=== PATIENT | female | born 1940 | race Caucasian/White ===

== ENCOUNTER 2017-10-18 06:33 | Inpatient (IN) | payer OTHER ==
[2017-10-18] VITALS (9 sets, daily range): BP systolic 101–139; BP diastolic 35–91
[~2017-10-18] VITALS: Ht 149.9 cm; Wt 54.4 kg
--- NOTE | ~2017-10-18 | EKG ---
[address] [address] ELECTROCARDIOGRAM REPORT Name: TIFFANI VUONG Room #: 150-10 [facility].#: [id number] Admission: 10/18/17 Attend Phys: Ronaldo Read MD Discharge: Date of : 36 Report #: [id number] THIS REPORT FOR: //name// [facility] Test Date: 2017-10-18 Test Time: 11:45:09 Pat Name: TIFFANI VUONG Department: Room: 150 10 Gender: F Solar Sales Ambassador: ALFONSO : 1940 Requested By: Ronaldo Read Order Number: [id number] MD: Adam Junior Measurements Intervals [place] Rate: 62 P: 26 IL: 280 QRS: -42 QRSD: 141 T: 96 QT: 468 QTc: 476 Interpretive Statements Sinus rhythm Prolonged IL interval Left bundle branch block Compared to ECG 05/01/2014 11:18:32 No significant changes Electronically Signed On 10-18-2017 13:09:30 CDT by Adam Junior [email or web address] <ELECTRONICALLY SIGNED> By: Adam Junior MD 10/18/17 1309 1145 1145 Adam Junior MD /[facility]
--- NOTE | ~2017-10-18 | O ---
[facility] [place] [address] OPERATIVE REPORT Name: TIFFANI VUONG Room #: 150-10 [facility] M.R.#: [id number] Admission: 10/18/17 Attend Phys: Ronaldo Read MD Discharge: Date of : 36 Report #: [id number] THIS REPORT FOR: //name// CC: Sachin Read DATE OF SERVICE: 10/18/2017 PREOPERATIVE DIAGNOSIS: Right ankle trimalleolar fracture. POSTOPERATIVE DIAGNOSIS: Right ankle trimalleolar fracture. PROCEDURE: Right ankle trimalleolar fracture open reduction and internal fixation. SURGEON: Ronaldo Read MD SHOW CARD WRITER: Gin Spears. ANESTHESIA: General. ESTIMATED BLOOD LOSS: Minimal. DRAINS: None. TOURNIQUET TIME: 90 minutes. DESCRIPTION OF PROCEDURE: The patient brought to the operating room where she was placed under general anesthesia. Once under adequate general anesthesia, her right lower extremity was prepped and draped in sterile manner. The extremity was elevated, exsanguinated and a tourniquet placed to 300 mmHg. A lateral incision over the fibula was made. This was dissected down through soft tissue to the fracture site. The fracture was freed of any intervening soft tissue, it was disimpacted as well. Once disimpacted, the fracture was reduced and fixed with a 10-hole 1/3 tubular plate. An incision over the medial malleolus was made. This was dissected down through the soft tissue to this fracture site as well. Any hematoma and soft tissue intervening was removed from the fracture site and fixation achieved with two 4.0 cannulated screws placed under fluoroscopic guidance. The joint was unstable due to a third posterior malleolar fracture fragment, so this was then therefore identified and a [place] elevator was used to free up this fracture site as well and any intervening soft tissue was removed. Exposure was made of the entire posterior malleolus through the medial incision. Once exposed, a reduction tenaculum was placed across the joint to hold it in a reduced position. Excellent reduction was achieved. The wound was irrigated copiously and two 4.0 cannulated screws were then placed across the fracture site from anterior to posterior. [facility] [address] [place] [address] OPERATIVE REPORT Name: TIFFANI VUONG Room #: 150-10 [facility] M.R.#: [id number] Admission: 10/18/17 Attend Phys: Ronaldo Read MD Discharge: Date of : 36 Report #: [id number] fixation and alignment was achieved in this manner as verified under fluoroscopy. The wounds were irrigated copiously and closed with 2-0 Vicryl in subcutaneous tissues and kathi were used for the skin. The wounds were dressed with Xeroform, 4 x 4s, and sterile soft compressive dressing with a short leg cast was placed. Tourniquet was let down at approximately 90 minutes. Toes were pink and warm with good capillary refill. There were no complications from the procedure. The patient tolerated the procedure well and went to the recovery room without incident. By: 1421 1440 Ronaldo Read MD /nt
[~2017-10-18 06:33] MED LIST: ADVAIR 250-501 EACH INH; ALENDRONATE SOD70 MG PO; ALEVE220 MG PO; AMLODIPINE BESY10 MG PO; APAP500 PO; ASPIR 8181 MG PO; BYSTOLIC 5 MG5 M1 PO; BYSTOLIC20 MG PO; CALICUM 500+D1 EACH PO; COLACE100 MG PO; COUMADIN 2 MG TA2 M1 PO; DARVOCET-N 1001 EACH PO; ENABLEX15 MG PO; FISH OIL 1,001000 M2 PO; FLONASE 0.05%50 MCG NASAL; HYDROCHLOROTHIA25 M2 PO; LISINOPRIL20 MG PO; MAG-AL PLUS SUS30 ML PO; NASACORT10.8 ML NASAL; NEURONTIN 300300 M1 PO; NORCO 10-325 T1 EACH PO; OXYBUTYNIN 5 MG5 M2 PO; PRILOSEC 20 MG20 MG PO; PRILOSEC20 MG PO; PROAIR HFA8.5 GM INH; ROBITUSSIN100 MG/53 PO; SIMVASTATIN40 MG PO; TRAMADOL 50 MG50 MG PO; TUMS PO; UNICOMPLEX M TA1 TA1 PO; VITAMIN D1000 UNI1 PO; VITAMIN D2000 UNIT PO; ZOLPIDEM TARTRA10 MG PO; ZYRTEC10 MG PO
[2017-10-19 05:15] VITALS: BP 100/48; BP 138/69
[2017-10-19 06:31] LABS: HEMATOCRIT 35.7 % (37.0-47.0); HEMOGLOBIN 12.2 gm/dL (12.0-15.0)
[2017-10-19 06:39] LABS: POTASSIUM 3.4 mmol/L (3.5-5.1)
[2017-10-19 07:13] VITALS: BP 153/75
[2017-10-19 14:16] VITALS: BP 152/76
[2017-10-19 19:20] VITALS: BP 105/56
[2017-10-20 04:10] VITALS: BP 142/55
[2017-10-20 08:00] VITALS: BP 144/59
[2017-10-20 16:00] VITALS: BP 133/59
[2017-10-20 19:15] VITALS: BP 119/58
[2017-10-21 05:04] VITALS: BP 134/53
[2017-10-21 08:00] VITALS: BP 138/61
[2017-10-22 08:42] VITALS: BP 135/72
[2017-10-22] MEDS ORDERED: ASA5UEC PO (09:13)
[2017-10-23 01:05] VITALS: BP 123/70
[2017-10-23 08:04] VITALS: BP 146/72
== END 2017-10-23 19:00 | DRG 494 ==
LOC: TBA 06:33 → OR 06:33 → 4E 06:33 → TBA 06:34 → OR 08:03 → 4E 15:32 → OR 15:33 → SICU 10-21 14:01
PROVIDERS: Orthopaedic Surgery Foot and Ankle Surgery
PROC: 0QSG04Z Reposition Right Tibia with Internal Fixation Device, Open Approach (ICD-10-PCS; principal; 2017-10-18)
PROC: 0QSJ04Z Reposition Right Fibula with Internal Fixation Device, Open Approach (ICD-10-PCS; principal; 2017-10-18)
DX: S82.851A Displaced trimalleolar fracture of right lower leg, initial encounter for closed fracture (principal); I10 Essential (primary) hypertension; Z96.653 Presence of artificial knee joint, bilateral; E78.5 Hyperlipidemia, unspecified; J45.909 Unspecified asthma, uncomplicated; M81.0 Age-related osteoporosis without current pathological fracture; G89.29 Other chronic pain; M54.5 Low back pain; M19.90 Unspecified osteoarthritis, unspecified site; M54.16 Radiculopathy, lumbar region; R26.9 Unspecified abnormalities of gait and mobility; R29.6 Repeated falls; N39.3 Stress incontinence (female) (male); G47.00 Insomnia, unspecified; Z79.899 Other long term (current) drug therapy; Z79.82 Long term (current) use of aspirin; W18.39XA Other fall on same level, initial encounter; Y93.89 Activity, other specified; Y92.098 Other place in other non-institutional residence as the place of occurrence of the external cause; Y99.8 Other external cause status
CPT/HCPCS: 10783; 15002; 50010; 50101; 50386; 51122; 51131; 51272; 51412; 51495; 56524; 56525; 56667; 57091; 62110; 62900; 65060; 70005

== ENCOUNTER → 2017-11-14 | Outpatient (CLI) | payer OTHER ==
[~2017-11-14] MED LIST changes: +ASA5UEC PO
== END ==
LOC: HYPER 11-08 14:32
DX: T81.4XXD Infection following a procedure, subsequent encounter (principal); M16.11 Unilateral primary osteoarthritis, right hip; M41.9 Scoliosis, unspecified; M43.09 Spondylolysis, multiple sites in spine; M25.571 Pain in right ankle and joints of right foot; M19.90 Unspecified osteoarthritis, unspecified site; Y83.8 Other surgical procedures as the cause of abnormal reaction of the patient, or of later complication, without mention of misadventure at the time of the procedure

== ENCOUNTER → 2017-11-20 | Outpatient (CLI) | payer OTHER | LOC: HYPER 06:34 | DX: T81.4XXD Infection following a procedure, subsequent encounter (principal); M16.11 Unilateral primary osteoarthritis, right hip; M41.9 Scoliosis, unspecified; M43.09 Spondylolysis, multiple sites in spine; M25.571 Pain in right ankle and joints of right foot; F41.9 Anxiety disorder, unspecified; Y83.8 Other surgical procedures as the cause of abnormal reaction of the patient, or of later complication, without mention of misadventure at the time of the procedure ==

== ENCOUNTER → 2017-12-06 | Outpatient (CLI) | payer OTHER | LOC: HYPER 09:25 | DX: T81.4XXD Infection following a procedure, subsequent encounter (principal); M16.11 Unilateral primary osteoarthritis, right hip; M41.9 Scoliosis, unspecified; M43.09 Spondylolysis, multiple sites in spine; M25.571 Pain in right ankle and joints of right foot; M19.90 Unspecified osteoarthritis, unspecified site; F41.9 Anxiety disorder, unspecified; Y83.8 Other surgical procedures as the cause of abnormal reaction of the patient, or of later complication, without mention of misadventure at the time of the procedure ==

== ENCOUNTER → 2018-01-03 | Outpatient (CLI) | payer OTHER | LOC: HYPER 07:02 | DX: T81.4XXD Infection following a procedure, subsequent encounter (principal); M16.11 Unilateral primary osteoarthritis, right hip; M41.9 Scoliosis, unspecified; M43.09 Spondylolysis, multiple sites in spine; M25.571 Pain in right ankle and joints of right foot; F41.9 Anxiety disorder, unspecified; Y83.8 Other surgical procedures as the cause of abnormal reaction of the patient, or of later complication, without mention of misadventure at the time of the procedure ==

== ENCOUNTER → 2019-01-15 | Outpatient (CLI) | payer OTHER ==
[~2019-01-15] MED LIST changes: +ACETAMINOPHEN-1 EAC3 PO; +ASA81BEC PO; +FIRVANQ50 MG/1 ML PO; +HYDROCHLOROTHIA25 M1 PO; +MELATIN3 MG PO; +NAPROXEN SODIU220 M2 PO; +ROBITUSSIN15 MG/5 ML PO; +SUPER THERAVIT1 EACH PO; +TIZANIDINE HCL2 M1 PO; +TRAZODONE 150150 M1 PO; +VITAMIN C500 M2 PO; +ZYRTEC10 M5 PO
== END ==
LOC: HYPER 12:13
DX: S61.552A Open bite of left wrist, initial encounter (principal); M16.11 Unilateral primary osteoarthritis, right hip; M41.9 Scoliosis, unspecified; M43.09 Spondylolysis, multiple sites in spine; M19.90 Unspecified osteoarthritis, unspecified site; M25.571 Pain in right ankle and joints of right foot; R60.0 Localized edema; R26.9 Unspecified abnormalities of gait and mobility; F41.9 Anxiety disorder, unspecified; W55.01XA Bitten by cat, initial encounter; Y93.9 Activity, unspecified; Y92.89 Other specified places as the place of occurrence of the external cause; Y99.9 Unspecified external cause status

== ENCOUNTER 2019-03-17 01:01 | Inpatient (IN) | payer OTHER ==
[~2019-03-17] VITALS: Ht 149.9 cm; Wt 64.4 kg
[~2019-03-17 01:01] MED LIST changes: -ACETAMINOPHEN-1 EAC3 PO; -ASA81BEC PO; -FIRVANQ50 MG/1 ML PO; -HYDROCHLOROTHIA25 M1 PO; -MELATIN3 MG PO; -NAPROXEN SODIU220 M2 PO; -ROBITUSSIN15 MG/5 ML PO; -SUPER THERAVIT1 EACH PO; -TIZANIDINE HCL2 M1 PO; -TRAZODONE 150150 M1 PO; -VITAMIN C500 M2 PO; -ZYRTEC10 M5 PO
[2019-03-17 01:03] VITALS: BP 88/39
[2019-03-17] MEDS ORDERED: NAPROXEN SODIU220 M2 PO (01:04)
[2019-03-17] MEDS ORDERED: HYDROCHLOROTHIA25 M1 PO (01:05)
[2019-03-17] MEDS ORDERED: SUPER THERAVIT1 EACH PO (01:11)
[2019-03-17] MEDS ORDERED: VITAMIN C500 M2 PO (01:11)
[2019-03-17] MEDS ORDERED: ACETAMINOPHEN-1 EAC3 PO (01:13)
[2019-03-17] MEDS ORDERED: ASA81BEC PO (01:14)
[2019-03-17] MEDS ORDERED: ROBITUSSIN15 MG/5 ML PO (01:14)
[2019-03-17] MEDS ORDERED: ZYRTEC10 M5 PO (01:15)
[2019-03-17] MEDS ORDERED: NASACORT10.8 ML NASAL (01:15)
[2019-03-17] MEDS ORDERED: MELATIN3 MG PO (01:16)
[2019-03-17] MEDS ORDERED: TRAZODONE 150150 M1 PO (01:17)
[2019-03-17] MEDS ORDERED: TIZANIDINE HCL2 M1 PO (01:18)
[2019-03-17 01:39] LABS: HEMATOCRIT 31.1 % (37.0-47.0); HEMOGLOBIN 10.3 gm/dL (12.0-15.0); MCH 31.3 pg (26.0-34.0); MCHC 33.1 g/dL (28.0-37.0); MCV 94.4 fL (80.0-100.0); PLATELET COUNT 306 thou/uL (150-400); RDW 13.8 % (10.5-14.5); WBC 8.3 thou/uL (4.0-11.0)
[2019-03-17 01:42] LABS: ANION GAP 8 mmol/L (7-16); BUN 14 mg/dL (7-18); CALCIUM 8.3 mg/dL (8.5-10.1); CHLORIDE 101 mmol/L (98-107); CO2 26 mmol/L (21-32); CREATININE 0.8 mg/dL (0.6-1.0); GLUCOSE 105 mg/dL (74-106); POTASSIUM 3.6 mmol/L (3.5-5.1); SODIUM 135 mmol/L (136-145)
[2019-03-17 01:43] LABS: URINE BILIRUBIN NEGATIVE (Negative); URINE BLOOD NEGATIVE (Negative); URINE CLARITY CLEAR; URINE COLOR YELLOW; URINE GLUCOSE-RANDOM* NEGATIVE (Negative); URINE KETONES NEGATIVE (Negative); URINE LEUKOCYTES-REFLEX TRACE (Negative); URINE NITRITE-REFLEX NEGATIVE (Negative); URINE PROTEIN (DIPSTICK) NEGATIVE (Negative); URINE UROBILINOGEN 0.2 E.U./dl (0.2-1.0)
[2019-03-17 01:52] LABS: ALBUMIN 2.9 g/dL (3.4-5.0); MAGNESIUM 1.7 mg/dL (1.8-2.4); SGOT 9 U/L (15-37); SGPT 12 U/L (30-65); TOTAL BILIRUBIN 0.4 mg/dL (<0.1-1.0); TOTAL PROTEIN 5.4 g/dL (6.4-8.2); TROPONIN-I <0.06 ng/mL (<0.06)
[2019-03-17 02:16] LABS: ABSOLUTE NEUTROPHILS 5.6 thou/uL (1.4-8.2)
[2019-03-17 02:17] LABS: LARGE PLATELETS OCCASIONAL
[2019-03-17 06:06] VITALS: BP 105/48
[2019-03-17 06:18] VITALS: BP 106/48
--- NOTE | 2019-03-17 08:14 | EKG ---
[address] [place] [address] ELECTROCARDIOGRAM REPORT Name: TIFFANI VUONG Room #: 359-P [facility] M.R.#: [id number] Admission: 03/17/19 Attend Phys: Tommy Valera Discharge: Date of : 36 Report #: [id number] THIS REPORT FOR: //name// [facility] ED Test Date: 2019-03-17 Test Time: 01:16:00 Pat Name: TIFFANI VUONG Department: Room: 359 Gender: F Rigger Third: KAMLA : 1940 Requested By: Gabriele Kirby Order Number: [id number] MD: Adam Junior Measurements Intervals [place] Rate: 73 P: 41 AL: 286 QRS: -38 QRSD: 139 T: 124 QT: 444 QTc: 490 Interpretive Statements Sinus rhythm Prolonged AL interval Left bundle branch block Baseline wander in lead(s) V2 Compared to ECG 10/18/2017 11:45:09 No significant changes Electronically Signed On 03-17-2019 8:14:29 CUT PRESS OPERATOR by Adam Junior [email or web address] <ELECTRONICALLY SIGNED> By: Adam Junior MD 03/17/19 0814 0116 0116 Adam Junior MD /EPI
[2019-03-17 08:32] VITALS: BP 129/72
--- NOTE | 2019-03-17 12:04 | NUR ---
INITIAL ASSESSMENT: Received consult for discharge planning. SW reviewed chart and spoke with nursing. Pt was admitted from home due to syncope/hypotension. SW met with pt at bedside. Introduced role of SW. Pt is alert/orientated x 4. Pt reports she lives at home with her spouse. Prior to admission, pt was using a cane or walker. Pt has steps inside her home, but does not have to navigate the stairs. Pt has used [facility] in the past for services and has been to [facility]. Pt's PCP is Dr. Sachin Samaniego. Pt's goal is to return home when medically stable. SW is following to assist as needed with discharge planning.
[2019-03-17 15:39] VITALS: BP 148/79
--- NOTE | 2019-03-17 19:35 | NUR ---
PT admitted from ER for syncope and hypotension, pt is A&O X3, PT'S VS are stable, pt is continuing NS @75ML/HR,PT has liquid stool for 6-7 times at day franchesca, RN has sent stool to check, recslut shows C.DIFF PCR Positive, new order received. pt has started medications for C-DIFF.
[2019-03-17 19:45] VITALS: BP 149/81
[2019-03-18 00:30] VITALS: BP 137/78
--- NOTE | 2019-03-18 03:17 | NUR ---
bowel movements are formed and brown. she gets up to [facility] with minimal assist. careplan reviewed. scheduled pain relievers are effective in relaxing her and allowing for controlled pain levels. no discharge concerns voiced.
[2019-03-18 04:25] VITALS: BP 131/68
[2019-03-18 06:10] LABS: MCH 31.4 pg (26.0-34.0); MCHC 33.3 g/dL (28.0-37.0); MCV 94.4 fL (80.0-100.0); RBC 3.81 mil/uL (4.20-5.00); RDW 14.3 % (10.5-14.5); WBC 7.6 thou/uL (4.0-11.0)
[2019-03-18 06:29] LABS: ANION GAP 9 mmol/L (7-16); BUN 5 mg/dL (7-18); CALCIUM 8.6 mg/dL (8.5-10.1); CHLORIDE 109 mmol/L (98-107); CO2 26 mmol/L (21-32); CREATININE 0.5 mg/dL (0.6-1.0); GLUCOSE 83 mg/dL (74-106); POTASSIUM 3.1 mmol/L (3.5-5.1); SODIUM 144 mmol/L (136-145); TROPONIN-I <0.06 ng/mL (<0.06)
[2019-03-18 07:59] VITALS: BP 141/77
--- NOTE | 2019-03-18 15:07 | NUR ---
MEAGHAN reviewed chart and spoke with nursing and attending physician. Pt is progressing towards goals for discharge. SW met with pt at bedside to disucuss discharge plan. Pt states she has an appt at [facility] for a procedure to help her back. Pt is not wanting to go a post-acute facility when discharged. Pt is agreeable with services. Pt has used [facility] in the past and would like to use them again. MEAGHAN faxed info to [facility] for review. Discharge anticipated in 1-2 days. MEAGHAN is following to assist as needed with discharge planning.
[2019-03-18 15:48] VITALS: BP 140/75
--- NOTE | 2019-03-18 18:41 | NUR ---
ASSUMED CARE OF PT AT 0700. PT ALERT AND ORIENTED X4 IN NO ACUTE DISTRESS. MULTIPLE FORMED BROWN STOOLS. UP TO BSC W/ SBA. VITALS STABLE. IV ABX AND MAINTENANCE FLUIDS INFUSING PER ORDER. PT PROGRESSING TOWARD POC GOALS.
[2019-03-18 19:37] VITALS: BP 160/81
[2019-03-19 05:09] VITALS: BP 144/60
[2019-03-19 05:50] LABS: CALCIUM 8.8 mg/dL (8.5-10.1); CREATININE 0.5 mg/dL (0.6-1.0); POTASSIUM 3.7 mmol/L (3.5-5.1)
[2019-03-19 07:16] VITALS: BP 165/89
--- NOTE | 2019-03-19 07:27 | NUR ---
ASSUMED CARE AT 1900, ASSESSMENT COMPLETED. PT DENIES SOB OR NAUSEA; HAD A SMALL, FORMED STOOL IN THE EVENING. REPORTS CHRONIC BACK PAIN EXTENDING DOWN INTO HER RIGHT LEG, REPORTS GOOD PAIN CONTROL WITH SCHEDULED TRAMADOL. IVF AND FLAGYL GIVEN OVERNIGHT. PT C/O URINARY FREQUENCY; THIS MORNING UPDATED HER HOME MED LIST AND OBTAINED ORDER FROM NURSE PRACTITIONER TO GIVE OXYBUTYNIN BID INSTEAD OF ONCE DAILY. NO OTHER CONCERNS, SHIFT REPORT GIVEN AT 0700.
--- NOTE | 2019-03-19 16:10 | NUR ---
SW reviewed chart and spoke with nursing and attending physician. Pt is progressing towards goals for discharge. Discharge home with HH is anticipated for tomorrow. MEAGHAN updated [facility] liaison, who will meet with pt tomorrow morning. MEAGHAN is following to assist as needed with discharge planning.
[2019-03-19 16:32] VITALS: BP 146/83
--- NOTE | 2019-03-19 19:39 | NUR ---
ASSUMED PATIENT CARE AT 0700. A/0 X4. NO LOOSE STOOL. DENIES PAIN. PROGRESSING TOWARDS POC GOALS.
[2019-03-19 21:10] VITALS: BP 162/92
[2019-03-19 22:04] VITALS: BP 148/88
--- NOTE | 2019-03-20 02:07 | NUR ---
PATIENT IS ALERT AND ORIENTED. PAITENT IS UP WITH ONE. PATIENT IS WEAK. PATIENTS LBM WAS THE 3RD. PATIENT IS ON ORAL VANCO. PATIENTS PAIN IS TREATED WITH PAIN MEDICATION. PATIENT IS RESTING COMFORTABLY IN BED. WCM.
[2019-03-20 04:33] VITALS: BP 137/82
[2019-03-20] MEDS ORDERED: FIRVANQ50 MG/1 ML PO (08:35)
[2019-03-20 08:45] VITALS: BP 149/93
[2019-03-20 10:30] VITALS: BP 149/93
--- NOTE | 2019-03-20 12:00 | NUR ---
DISCHARGE ORDERS COMPLETED. PATIENT DISCHARGING TO HOME WITH [facility]. DISCHARGE HOME HEALTH ORDERS FAXED TO [facility]. CALL RECEIVED FROM [facility]. DISCHARGE HH ORDERS RECEIVED AND WILL FACILITATE. UNIT SW AWARE.
--- NOTE | 2019-03-20 15:37 | NUR ---
DISCHARGE NOTE: SW reviewed chart and spoke with nursing and attending physician. Pt is medically stable for discharge home today with HH services. land use planner faxed discharge orders/summary to [facility]. HH liaison was onsite earlier today and met with pt. Pt's to provide transportation home. Contact info for HH placed in pt's discharge summary. No additional SW needs identified at this time, but is available to assist should needs arise.
[2019-03-20 15:55] VITALS: BP 145/83
--- NOTE | 2019-03-20 16:07 | NUR ---
PROGRESSING TOWARDS POC GOALS. DC TO [facility] NOW.
== END 2019-03-20 16:30 | disposition home health service (06) | DRG 371 ==
LOC: ER 01:01 → EROBS 03:22 → 3W 03:22 → ENTRNSPT 03-20 16:05 → 3W 03-20 16:30
PROVIDERS: Emergency Medicine; ADMIT Hospitalist
DX: A04.72 Enterocolitis due to Clostridium difficile, not specified as recurrent (principal); E43 Unspecified severe protein-calorie malnutrition; I95.1 Orthostatic hypotension; Z96.653 Presence of artificial knee joint, bilateral; M19.90 Unspecified osteoarthritis, unspecified site; I10 Essential (primary) hypertension; J45.909 Unspecified asthma, uncomplicated; K21.9 Gastro-esophageal reflux disease without esophagitis; E78.5 Hyperlipidemia, unspecified; I48.91 Unspecified atrial fibrillation; E86.0 Dehydration; E83.42 Hypomagnesemia; D72.825 Bandemia; N32.81 Overactive bladder; G47.00 Insomnia, unspecified; E87.6 Hypokalemia; M81.0 Age-related osteoporosis without current pathological fracture; Z90.49 Acquired absence of other specified parts of digestive tract; Z98.42 Cataract extraction status, left eye; Z98.41 Cataract extraction status, right eye; Z90.722 Acquired absence of ovaries, bilateral; Z68.28 Body mass index [BMI] 28.0-28.9, adult
CPT/HCPCS: 10879